=== PATIENT | male | born 1980 | race Two or more races ===

== ENCOUNTER 2019-12-26 09:13 | Emergency (ER) | payer SELFPAY ==
[~2019-12-26] VITALS: Ht 182.9 cm; Wt 70.8 kg
--- NOTE | 2019-12-26 09:21 | NUR ---
[id number], from street, generalized weakness, haven't eat for 4 days. On room air, breathing evenly and unlabored. kept comfortable, will continue to monitor accordingly.
[2019-12-26 09:41] LABS: BASOPHILS % (AUTO) 0.5 % (0.0-2.0); EOSINOPHILS % (AUTO) 1.2 % (0.0-6.0); HEMATOCRIT 44 % (39-51); HEMOGLOBIN 14.7 g/dL (13.5-17.5); LYMPHOCYTES # (AUTO) 1.3 /CMM (0.8-4.8); LYMPHOCYTES % (AUTO) 20.6 % (20.0-44.0); MEAN CORPUSCULAR HGB CONC 33 g/dl (31.0-36.0); MEAN CORPUSCULAR VOLUME 91 fL (80-96); MONOCYTES # (AUTO) 0.5 /CMM (0.1-1.30); MONOCYTES % (AUTO) 7.2 % (2.0-12.0); NEUTROPHILS # (AUTO) 4.5 /CMM (1.8-8.9); NEUTROPHILS % (AUTO) 70.5 % (43.0-81.0); PLATELET COUNT (AUTO) 255 /CMM (150-450); RED BLOOD CELL COUNT(AUTO) 4.84 MIL/uL (4.5-6.0); WHITE BLOOD COUNT (AUTO) 6.4 K/uL (4.3-11.0)
[2019-12-26 09:47] LABS: CALCIUM, SERUM 8.7 mg/dL (8.5-10.1); POTASSIUM 3.9 mmol/L (3.5-5.1)
[2019-12-26 09:58] LABS: ALBUMIN 3.8 g/dL (3.4-5.0); BILIRUBIN,TOTAL 0.8 mg/dL (0.2-1.0); TOTAL PROTEIN, SERUM 7.7 g/dL (6.4-8.2)
--- NOTE | 2019-12-26 11:03 | NUR ---
patient in bed asleep, easily arousable by voice, hooked to monitor, will continue to monitor accordingly.
--- NOTE | 2019-12-26 13:34 | NUR ---
Patient is resting comfortably in bed with eyes closed. Easily aroused. VSS
--- NOTE | 2019-12-26 15:41 | NUR ---
PATIENT AMBULATED GOING TO THE RESTROOM WITH STEADY GAIT
--- NOTE | 2019-12-26 16:11 | NUR ---
Patient discharged to home in stable condition. Written and verbal after care instructions given. Patient verbalizes understanding of instruction. Addendum: 12/26/19 at 1615 by NED Patient given written and verbal discharge instructions. Patient verbalizes understanding of instructions. Patient is ambulatory with steady gait. Refuses offer of senior care placement. Patient given list of available shelters in surrounding area. PAtient in proper clothing upon discharge, all belongings returned to patient, nameband removed
[2019-12-26 16:16] VITALS: BP 127/71
== END 2019-12-26 16:16 | disposition home or self-care (01) ==
LOC: ER 09:15
DX: R53.1 Weakness (principal); F15.10 Other stimulant abuse, uncomplicated
CPT/HCPCS: 36415; 80053-TC; 82550-TC; 82553; 82962-TC; 85025-TC